=== PATIENT | female | born 1995 | race Caucasian/White ===

== ENCOUNTER 2019-12-27 16:56 | Emergency (ER) | payer OTHER ==
--- NOTE | 2019-12-27 17:16 | ED Physician Documentation ---
History of Present Illness - Stated complaint Stated Complaint: FEMALE - Chief complaint Chief Complaint: General - History obtained from History obtained from: Patient - Additonal information Additional information: 2 days of vaginal irritation especially posteriorly and bilateral with significant white discharge. Also throat sores of the same time duration. No fevers. Review of Systems Constitutional: reports: Reviewed and negative Eyes: reports: Reviewed and negative Ears: reports: Reviewed and negative Throat: reports: Sore throat Cardiac: reports: Reviewed and negative PD PAST MEDICAL HISTORY - Past Medical History Past Medical History: No Neuro: None - Past Surgical History Past Surgical History: No - Present Medications Home Medications: Ambulatory Orders Medication Instructions Recorded Confirmed Lidocaine Viscous 2% [Xylocaine 5 ml MM Q4H PRN #1 bottle 12/27/19 Viscous 2%] metroNIDAZOLE [Flagyl] 500 mg PO BID #14 tablet 12/27/19 - Allergies Allergies/Adverse Reactions: Allergies Allergy/AdvReac Type Severity Reaction Status Date / Time No Known Drug Allergies Allergy Verified 12/27/19 17:04 - Social History Does the pt smoke?: No Smoking Status: Never smoker Does the pt drink ETOH?: No - Immunizations Immunizations are current?: Yes PD ED PE NORMAL - Vitals Vital signs reviewed: Yes - General General: Alert and oriented X 3, No acute distress - HEENT HEENT: Other (Numerous small ulcers on the tonsillar pillars, no tonsillar exudate or swelling.) - Neck Neck: Supple, no meningeal sign, No bony TTP - Female 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[employer]), Other (She has some skin breakdown and blistering at the posterior fourchette and moderate thin slightly off-white discharge.) - Neuro Neuro: Alert and oriented X 3, Normal speech Results - Vitals Vitals: Vital Signs - 24 hr 12/27/19 12/27/19 17:00 18:19 Temperature 36.8 C 37.3 C Heart Rate 120 H 108 H Respiratory 18 18 Rate Blood Pressure 140/103 H 135/97 H O2 Saturation 99 94 Oxygen O2 Source Room air - Labs Labs: Microbiology 12/27/19 17:21 Wet Prep - Final Vaginal Laboratory Tests 12/27/19 12/27/19 12/27/19 17:50 17:50 17:50 WBC 7.5 RBC 4.62 Hgb 13.6 Hct 40.5 MCV 87.7 MCH 29.4 MCHC 33.6 RDW 12.2 Plt Count 211 MPV 10.1 Neut # (Auto) 5.3 Lymph # (Auto) 1.5 Wy[place] # (Auto) 0.7 Eos # (Auto) 0.0 Baso # (Auto) 0.0 Absolute Nucleated RBC 0.00 Nucleated RBC % 0.0 Sodium 137 Potassium 3.4 L Chloride 102 Carbon Dioxide 24 Anion Gap 11.0 BUN 11 Creatinine 0.7 Estimated GFR (MDRD) 102 Glucose 115 H Calcium 9.4 Infectious Wythe Assay NEGATIVE PD MEDICAL DECISION MAKING - ED course ED course: This young woman has vaginal irritation associated with a viral appearing sore throat. Wythe test was negative. She does have evidence of bacterial vaginosis on wet mount and is treated with Flagyl. Departure - Departure Disposition: 01 Home, Self Care Clinical Impression: Bacterial vaginosis, Sore throat Condition: Good Record reviewed to determine appropriate education?: Yes Instructions: ED Vaginosis Bacterial Prescriptions: metroNIDAZOLE [Flagyl] 500 mg PO BID #14 tablet Lidocaine Viscous 2% [Xylocaine Viscous 2%] 5 ml MM Q4H PRN #1 bottle PRN Reason: Pain Comments: Call your doctor to arrange a follow-up appointment, make the next available appointment. In the interim, return anytime if worse or if new symptoms develop . Discharge Date/Time: 12/27/19 18:26
[2019-12-27] MEDS ORDERED: LIDOCAINE 2% URO-JET 5 ML SYRINGE UR STA (17:21)
[2019-12-27 17:56] LABS: BASOPHILS % (AUTO) 0.5 %; EOSINOPHILS % (AUTO) 0.4 %; HGB - HEMOGLOBIN 13.6 g/dL (12.0-16.0); LYMPHOCYTES # (AUTO) 1.5 10^3/uL (1.5-3.5); LYMPHOCYTES % (AUTO) 19.4 %; MEAN CORPUSCULAR HEMOGLOBIN 29.4 pg (27.0-31.0); MEAN CORPUSCULAR HGB CONC 33.6 g/dL (32.0-36.0); MEAN CORPUSCULAR VOLUME 87.7 fL (81.0-99.0); MEAN PLATELET VOLUME 10.1 fL (7.9-10.8); MONOCYTES # (AUTO) 0.7 10^3/uL (0.0-1.0); MONOCYTES % (AUTO) 9.2 %; NEUTROPHILS # (AUTO) 5.3 10^3/uL (1.5-6.6); NEUTROPHILS % (AUTO) 70.1 %; PLT - PLATELET COUNT 211 10^3/uL (130-450); RED BLOOD COUNT 4.62 10^6/uL (4.20-5.40); RED CELL DISTRIBUTION WIDTH 12.2 % (12.0-15.0); WHITE BLOOD COUNT 7.5 x10^3/uL (4.8-10.8)
[2019-12-27 18:08] LABS: CALCIUM 9.4 mg/dL (8.5-10.3); CREATININE 0.7 mg/dL (0.4-1.0)
[2019-12-27] MEDS ORDERED: metroNIDAZOLE 250 MG TABLET PO STA (18:15)
[2019-12-27 18:19] VITALS: BP 135/97
[2019-12-27 19:29] LABS: CANDIDA GROUP DNA NEGATIVE (NEGATIVE); CANDIDA KRUSEI DNA NEGATIVE (NEGATIVE); TRICHOMONAS VAGINALIS DNA NEGATIVE (NEGATIVE)
== END 2019-12-27 18:26 | disposition home or self-care (01) ==
LOC: ED 16:56
DX: N76.0 Acute vaginitis (principal); J02.9 Acute pharyngitis, unspecified
CPT/HCPCS: 36415; 80048; 85025; 86308; 87210; 87481; 87661; 87801; 99283; A9270

== ENCOUNTER 2019-12-30 04:34 | Emergency (ER) | payer OTHER ==
[2019-12-30 05:19] LABS: RAPID STREP SCREEN Negative (Negative)
[2019-12-30] MEDS ORDERED: MAGIC MOUTHWASH 120 ML BOTTLE PO STA (05:56)
[2019-12-30] MEDS ORDERED: diphenhydrAMINE ELIXIR 25 MG/10 ML UDC PO STA (06:08)
[2019-12-30] MEDS ORDERED: MAG HYDROX/AL HYDROX/SIMETH 30 ML UDC PO STA (06:09)
[2019-12-30] MEDS ORDERED: LIDOCAINE VISCOUS 2% 15 ML UDC MM STA (06:09)
--- NOTE | 2019-12-30 06:43 | ED Physician Documentation ---
History of Present Illness - Stated complaint Stated Complaint: MOUTH ULCERS - Chief complaint Chief Complaint: Heent - Additonal information Additional information: 24-year-old woman, previously healthy presents with persistent oral ulcers after being seen 12/26 for the same. aching, constant, moderate severity. Patient also endorsing vaginal lesions. She was diagnosed with BV and given Flagyl with some improvement. However her oral pain has not been relieved with viscous lidocaine. Patient endorsingSubjective fevers but denies cough, abdominal pain. Vaginal discharge has improved. Review of Systems Ten Systems: 10 systems reviewed and negative Constitutional: reports: Fever Nose: denies: Rhinorrhea / runny nose, Congestion, Sinus pressure / pain Throat: reports: Oral lesions / sores, Sore throat. denies: Dental pain / toothache Cardiac: denies: Chest pain / pressure, Palpitations Respiratory: denies: Dyspnea, Cough GI: denies: Abdominal Pain : reports: Other (vaginal lesions). denies: Dysuria, Frequency PD PAST MEDICAL HISTORY - Past Medical History Neuro: None - Past Surgical History Past Surgical History: No - Present Medications Home Medications: Ambulatory Orders Medication Instructions Recorded Confirmed Lidocaine Viscous 2% [Xylocaine 5 ml MM Q4H PRN #1 bottle 12/27/19 Viscous 2%] metroNIDAZOLE [Flagyl] 500 mg PO BID #14 tablet 12/27/19 Lidocaine Viscous 2% [Xylocaine 5 ml MM Q4H PRN #1 bottle 12/30/19 Viscous 2%] Valacyclovir HCl [Valacyclovir] 1,000 mg PO BID 7 Days #14 tablet 12/30/19 - Allergies Allergies/Adverse Reactions: Allergies Allergy/AdvReac Type Severity Reaction Status Date / Time No Known Drug Allergies Allergy Verified 12/30/19 04:40 - Social History Does the pt smoke?: No Smoking Status: Never smoker Does the pt drink ETOH?: No - Immunizations Immunizations are current?: Yes PD ED PE NORMAL - Vitals Vital signs reviewed: Yes - General General: Alert and oriented X 3 - HEENT HEENT: Atraumatic, PERRL, EOMI, Moist mucous membranes, Other (BL soft palate ulcerated lesions. no cervical adenopathy. no tonsillar enlargement or exudates) - Cardiac Cardiac: RRR - Respiratory Respiratory: No respiratory distress, Clear bilaterally - Abdomen Abdomen: Normal bowel sounds, Non tender, Non distended - Female Female : Deferred - Rectal Rectal: Deferred - Back Back: No CVA TTP - Derm Derm: Normal color, Warm and dry - Extremities Extremities: No edema - Neuro Neuro: Alert and oriented X 3 - Psych Psych: Normal mood, Normal affect Results - Vitals Vitals: Vital Signs - 24 hr 12/30/19 12/30/19 04:38 06:00 Temperature 36.7 C 37.8 C H Heart Rate 99 Respiratory 18 Rate Blood Pressure 142/98 H O2 Saturation 100 Oxygen O2 Source Room air - Labs Labs: Laboratory Tests 12/30/19 05:08 Group A Strep Rapid Negative PD MEDICAL DECISION MAKING - ED course Complexity details: reviewed old records, d/w patient, d/w family ED course: 24-year-old woman presents with with complaining of persistent oral lesions, concern for stomatitis. Herpes simplex virus PCR and strep cultures sent. Magic mouthwash given in the emergency department with relief of symptoms. Patient has been given a prescription for valacyclovir and counseled to follow- up PCR results on her patient health portal. If positive, patient and her will both need to be treated. Departure - Departure Disposition: 01 Home, Self Care Clinical Impression: Stomatitis, Vaginal lesion Condition: Good Instructions: Sores Mouth Ch Prescriptions: Valacyclovir HCl [Valacyclovir] 1,000 mg PO BID 7 Days #14 tablet Lidocaine Viscous 2% [Xylocaine Viscous 2%] 5 ml MM Q4H PRN #1 bottle PRN Reason: Mouth Sore Pain Comments: You have been seen in the emergency department for ulcers on your throat and your genitals. A strep culture and a herpes simplex virus study has been sent. You can access the results of your tests using my patient portal on the [employer] website. A prescription for valacyclovir, and antiviral is going to be given. If you test positive for herpes simplex virus, your will also need to be treated. Return to the ed for any worsening of symptoms.
[2019-12-30 06:46] VITALS: BP 137/94
[2020-01-02 16:26] LABS: SOURCE OROPHARYNX
== END 2019-12-30 06:47 | disposition home or self-care (01) ==
LOC: ED 04:34
DX: K12.1 Other forms of stomatitis (principal); N76.5 Ulceration of vagina
CPT/HCPCS: 87070; 87430; 87529; 99283; 99284; A9270